=== PATIENT | female | born 1995 | race Caucasian/White ===

== ENCOUNTER 2021-09-07 10:51 | Observation (INO) | payer BC, SELFPAY ==
[~2021-09-07] VITALS: Ht 170.2 cm; Wt 81.6 kg
[2021-09-07 11:52] VITALS: BP 124/83
[2021-09-07] MEDS ORDERED: PRETAB PO (12:58)
== END 2021-09-07 13:15 | disposition home or self-care (01) ==
LOC: MLD 10:51
PROVIDERS: ADMIT Obstetrics & Gynecology; ATTEND Obstetrics & Gynecology
DX: O48.0 Post-term pregnancy (principal); O36.8330 Maternal care for abnormalities of the fetal heart rate or rhythm, third trimester, not applicable or unspecified; Z3A.41 41 weeks gestation of pregnancy
CPT/HCPCS: 59025; 81000; 87426; G0378

== ENCOUNTER 2021-09-10 19:30 | Inpatient (IN) | payer BC, SELFPAY ==
[~2021-09-10] VITALS: Ht 167.6 cm; Wt 81.6 kg
[~2021-09-10 19:30] MED LIST: PRETAB PO
[2021-09-10] MEDS ORDERED: METHYLERGONOVINE 0.2 MG/ML AMP IM PRN (19:45)
[2021-09-10] MEDS ORDERED: OXYTOCIN 10 UNITS/ML VIAL IM SCH (19:45)
[2021-09-10] MEDS ORDERED: LACTATED RINGERS 1,000 ML IV SCH (19:45)
[2021-09-10] MEDS ORDERED: ONDANSETRON 4 MG/2 ML VIAL IVP PRN (19:45)
[2021-09-10] MEDS ORDERED: NALBUPHINE 10 MG/ML AMP IVP PRN (19:45)
[2021-09-10] MEDS ORDERED: CARBOPROST 250 MCG/ML AMP IM PRN (19:45)
[2021-09-10] MEDS ORDERED: PROMETHAZINE 25 MG/ML VIAL IVP PRN (19:45)
[2021-09-10] MEDS ORDERED: MORPHINE SULFATE 5 MG/ML VIAL IVP PRN (19:45)
[2021-09-10] MEDS ORDERED: MORPHINE SULFATE 10 MG/ML VIAL ONE (19:57)
[2021-09-10] MEDS ORDERED: ONDANSETRON 4 MG/2 ML VIAL ONE (19:57)
[2021-09-10 20:35] LABS: BASOPHILS % (AUTO) 0.1 % (0.0-2.0); HEMOGLOBIN 12.7 g/dL (12.0-16.0); LYMPHOCYTES # (AUTO) 1.1 K/uL (2.5-16.5); LYMPHOCYTES % (AUTO) 6.2 % (20.5-51.1); MEAN CORPUSCULAR HEMOGLOBIN 31 pg (27-31); MEAN CORPUSCULAR HGB CONC 34 g/dL (33-37); MEAN CORPUSCULAR VOLUME 90.3 fL (80-94); MONOCYTES # (AUTO) 0.3 K/uL (0.8-1.0); MONOCYTES % (AUTO) 1.9 % (1.7-9.3); NEUTROPHILS # (AUTO) 16.6 K/uL (1.8-7.7); NEUTROPHILS % (AUTO) 91.8 % (42.2-75.2); PLATELET COUNT (AUTO) 187 K/uL (140-450); RED CELL DISTRIBUTION WIDTH 13.4 % (11.6-13.7); WHITE BLOOD COUNT (AUTO) 18.1 K/uL (4.8-10.8)
[2021-09-10] MEDS ORDERED: ROPIVACAINE 0.2%/NS PREMIX 200 ML EPI ONE (20:50)
[2021-09-10 20:52] LABS: ALBUMIN 2.7 g/dL (3.4-5.0); ANION GAP 20.6 (8-16); CARBON DIOXIDE 15.3 mmol/L (21-32); CREATININE 0.8 mg/dL (0.6-1.3); POTASSIUM 3.9 mmol/L (3.5-5.1); TOTAL BILIRUBIN 0.5 mg/dL (0.0-1.0)
[2021-09-10] MEDS ORDERED: OXYTOCIN 20 UNITS/LR PREMIX 1,000 ML IV ONE (21:26)
[2021-09-11] MEDS ORDERED: MORPHINE PRES FREE 5 MG/10 ML AMP IV ONE (02:20)
[2021-09-11] MEDS ORDERED: ceFAZolin 1,000 MG VIAL ONE (02:21)
[2021-09-11] MEDS ORDERED: LIDOCAINE/EPI 2% 1:100000 20 ML VIAL INJ ONE (02:30)
[2021-09-11] MEDS ORDERED: KETAMINE 500 MG/5 ML VIAL ONE (02:44)
[2021-09-11] MEDS ORDERED: MIDAZOLAM 2 MG/2 ML VIAL ONE (02:45)
[2021-09-11] MEDS ORDERED: fentaNYL citrate 0.05 MG/ML VIAL ONE ×2 (02:45→03:37)
[2021-09-11] MEDS ORDERED: MEPERIDINE 50 MG/ML SYR ONE (03:32)
[2021-09-11] MEDS ORDERED: PROMETHAZINE 25 MG/ML VIAL IVP PRN (04:10)
[2021-09-11] MEDS ORDERED: OXYTOCIN 20 UNITS in LACTATED RINGERS 1,000 ML IV SCH (04:10)
[2021-09-11] MEDS ORDERED: METHYLERGONOVINE 0.2 MG/ML AMP IM PRN (04:10)
[2021-09-11] MEDS ORDERED: MEASLES, MUMPS, AND RUBELLA 1 VIAL SQVAC ONE (04:10)
[2021-09-11] MEDS: OXYTOCIN 20 UNITS in LACTATED RINGERS 1,000 ML IV SCH ×2 (04:51→05:03)
--- NOTE | 2021-09-11 07:07 | NUR ---
PATIENT HAS BEEN SCREENED AND CATEGORIZED LOW NUTRITION RISK. PATIENT WILL BE SEEN WITHIN 7 DAYS OF ADMISSION. 09/18/21 MOLINA VELEZ MS, RDN
[2021-09-11] MEDS ORDERED: bisacodyL 10 MG SUPP RC SCH (09:00)
[2021-09-11] MEDS ORDERED: KETOROLAC 60 MG/2 ML VIAL IM PRN (09:15)
[2021-09-11] MEDS ORDERED: ONDANSETRON 4 MG/2 ML VIAL IVP PRN (09:15)
[2021-09-11] MEDS ORDERED: NALOXONE 0.4 MG/ML VIAL IVP PRN ×3 (09:15)
[2021-09-11] MEDS ORDERED: OXYTOCIN 20 UNITS/LR PREMIX 1,000 ML IV ONE (21:17)
[2021-09-12] MEDS: oxyCODONE/APAP 5/325 MG 1 TAB TAB PO PRN ×3 (01:44→18:14)
[2021-09-12 05:56] LABS: BASOPHILS % (AUTO) 0.1 % (0.0-2.0); EOSINOPHILS % (AUTO) 0.2 % (0.0-4.0); HEMATOCRIT 27.8 % (36-48); HEMOGLOBIN 9.6 g/dL (12.0-16.0); LYMPHOCYTES % (AUTO) 13.4 % (20.5-51.1); MEAN CORPUSCULAR HEMOGLOBIN 32 pg (27-31); MEAN CORPUSCULAR HGB CONC 35 g/dL (33-37); MEAN CORPUSCULAR VOLUME 91.7 fL (80-94); MONOCYTES # (AUTO) 1.1 K/uL (0.8-1.0); MONOCYTES % (AUTO) 7.1 % (1.7-9.3); NEUTROPHILS # (AUTO) 11.8 K/uL (1.8-7.7); NEUTROPHILS % (AUTO) 79.2 % (42.2-75.2); PLATELET COUNT (AUTO) 139 K/uL (140-450); RED BLOOD CELL COUNT(AUTO) 3.03 MIL/uL (4.20-5.40)
[2021-09-12] MEDS ORDERED: oxyCODONE/APAP 5/325 MG 1 TAB TAB PO PRN ×2 (22:05)
[2021-09-12] MEDS: IBUPROFEN 600 MG TAB PO SCH (23:22)
[2021-09-13] MEDS: IBUPROFEN 600 MG TAB PO SCH ×2 (05:44→13:01)
== END 2021-09-13 16:40 | disposition home or self-care (01) | DRG 788 ==
LOC: MLD 19:30 → MFCC 09-11 05:20
PROVIDERS: ADMIT Obstetrics & Gynecology; ATTEND Obstetrics & Gynecology
PROC: 10D00Z1 Extraction of Products of Conception, Low, Open Approach (ICD-10-PCS; principal; 2021-09-11 02:30)
DX: O48.0 Post-term pregnancy (principal); O62.1 Secondary uterine inertia; Z20.822 Contact with and (suspected) exposure to COVID-19; Z3A.41 41 weeks gestation of pregnancy; Z37.0 Single live birth
CPT/HCPCS: 36415; 51702; 80053; 85025; 86592; 86886; 86900; 86901; 87340; J0690; J2001; J2175; J2210; J2250; J2270; J2405; J2590; J2795; J3010; J7120